=== PATIENT | female | born 1970 ===

== ENCOUNTER 2018-02-07 15:44 | Emergency (ER) | payer SELFPAY ==
[~2018-02-07] VITALS: Ht 165.1 cm; Wt 59.0 kg
[2018-02-07 15:57] VITALS: BP 133/78
--- NOTE | 2018-02-07 22:24 | Emergency Room Report ---
History of Present Illness General Chief Complaint: Nausea Source: Patient Present Illness Allergies: Coded Allergies: No Known Allergies (Unverified , 02/07/18) Nursing Documentation-[facility] Past Medical History: No Stated History Physical Exam Vital Signs Date Time Temp Pulse Resp B/P (MAP) Pulse Ox O2 Delivery O2 Flow Rate FiO2 02/07/18 15:31 98.4 78 20 133/78 98 Room Air 98.4 Medical Decision Making Diagnostic Impression: Primary Impression: Nausea alone ER Course Patient brought in by EMS. Upon arrival patient states that she does not want to stay here. Feels better. Signed AMA form. Left prior to evaluation by physician Last Vital Signs Date Time Temp Pulse Resp B/P (MAP) Pulse Ox O2 Delivery O2 Flow Rate FiO2 02/07/18 15:57 98.4 78 20 133/78 98 Room Air 98.4 Status: unchanged Disposition: LEFT W/OUT BEING SEEN Condition: Stable Referrals: NOT CHOSEN IPA/,REFERRING (PCP) Jeff Sam MD Feb 07, 2018 22:24
== END 2018-02-07 16:04 | disposition left against medical advice (07) ==
LOC: EDBD 15:44 → EMR 16:00
DX: R11.0 Nausea (principal); Z53.21 Procedure and treatment not carried out due to patient leaving prior to being seen by health care provider
CPT/HCPCS: 99281